=== PATIENT | female | born 1995 | race African-American/Black ===

== ENCOUNTER 2024-12-16 12:52 | Emergency (ER) | payer SELFPAY ==
--- NOTE | ~2024-12-16 | XR_ITS ---
HISTORY: RT flank pain, no injury COMPARISON: None TECHNIQUE: 3 views of the right ribs were performed along with a PA view of the chest FINDINGS: No acute displaced fracture is appreciated. Bone mineralization is age appropriate. Cardia mediastinal silhouette is unremarkable. The lungs are clear. IMPRESSION: No acute displaced rib fracture. The lungs are clear. Reviewed, dictated and finalized at location A.
--- NOTE | 2024-12-16 13:09 | ED.GENADULT ---
HPI - General Adult General Chief complaint: Unspecified Stated complaint: right side rib pain Time Seen by Provider: 12/16/24 13:24 Mode of arrival: ambulatory Limitations: no limitations History of Present Illness HPI narrative: 29-year-old female presents with concern for right anterior rib/right upper quadrant abdominal discomfort. Reports the pain feels like it is under her ribs. Reports has been there for 3 days. Reports she is comfortable when she sitting still in the pain is exacerbated when she moves, bends, twists. Reports coughing and deep breathing does not necessarily make the pain worse but sneezing does. She denies nausea, vomiting, diarrhea. Reports she last had a bowel movement 3 days ago but she typically only has a bowel movement twice a week. She does not feel constipated. She denies dysuria, frequency, urgency. Denies fever, body aches, chills, sweats. Denies recent cold symptoms, cough. Related Data Allergies Allergy/AdvReac Type Severity Reaction Status Date / Time Penicillins Allergy Unknown unknown Verified 12/16/24 13:10 Review of Systems Review of Systems: CONSTITUTIONAL: Denies malaise, chills, sweats, or fever. ENT: Denies rhinorrhea, congestion, sinus pain, otalgia or sore throat. CARDIOVASCULAR: Denies chest pain, palpitations, or edema. RESPIRATORY: Denies cough or dyspnea. GASTROINTESTINAL: Denies nausea, vomiting, diarrhea, constipation GENITOURINARY: Denies dysuria, urgency, frequency, or hematuria. SKIN: Denies bruising, redness, warmth, rash or itching. MUSCULOSKELETAL: Denies back pain, joint pain, or myalgia. Reports right anterior rib pain NEUROLOGIC: Denies numbness, weakness, or headache. PSYCHIATRIC: Denies anxiety or depression. All systems reviewed & are unremarkable except as noted in HPI and below PMFSH Comments At time of signature, agree with nursing past medical, surgical, social and family history. There is no relevant family history pertinent to the presenting complaint Exam Narrative: GENERAL: Well-appearing, well-nourished, and in no acute distress. HEAD: Normocephalic, atraumatic. EYES: PERRLA, sclera clear, and EOMI. No nystagmus. ENT: Nares clear. Mucous membranes moist. NECK: Supple. CHEST: No respiratory distress. Clear to auscultation. No bony deformities, no asymmetry. Speaks in full sentences. HEART: Regular rate and rhythm. No murmur heard. Normal peripheral pulses. ABDOMEN: Soft, nondistended, normal active bowel sounds, no palpable masses. Right upper quadrant tenderness EXTREMITIES: Normal range of motion. No edema. Normal strength and sensation. Right anterior lower rib tenderness SKIN: Warm, dry, no visible rash. NEURO: Alert and oriented x3. PSYCH: Normal mood and affect Course Course Emergency Course: Patient is aware of diagnosis, understands and agrees to treatment plan. Anticipatory guidance given. Patient agrees to follow-up as directed and is aware of reasons to seek care at the emergency department. Portions of this record may have been created with voice recognition software Level of Care: Express Care Visit Vital Signs Vital signs: Reviewed. Medical Decision Making MDM Narrative Medical decision making narrative: The patient was evaluated by myself in the [facility]. History is obtained from patient who is an independent historian and physical exam was performed.? Available medical records were reviewed at this time. ? Exam findings show no acute concerns or changes; patient is non-toxic appearing and is in no distress. Patient is appropriate for outpatient treatment and follow-up. ? I have evaluated and discussed social determinants of health with the patient that could potentially impact subsequent diagnosis and treatment plans. ? Differential diagnosis and treatment plan were discussed with the patient. Patient agrees with discussion and after shared medical decision making agrees with plan of care. All questions were answered to the patient's satisfaction. Critical Care Time Critical Care Time Critical Care Time: No Discharge Plan Discharge Clinical Impression: Rib pain Patient Disposition: Home Condition: Stable Instructions: General Patient Instructions Additional Instructions: 1) Please follow-up with your primary care doctor in the next 1-2 days. 2) If you have any worsening of symptoms or any other urgent concerns please go to the ER. 3) Please take medications as prescribed and continue taking your home medications as usual. 4) Please read and follow information included in discharge instructions. Patient Language: Irish Prescriptions: New cyclobenzaprine 10 mg tablet 10 mg PO TID PRN (Reason: muscle spasm) Qty: 20 0RF ibuprofen 800 mg tablet 800 mg PO Q6H PRN (Reason: pain) Qty: 30 0RF Follow-up/Referrals: PHYSICIAN,PARAKEET RAISER [Primary Care Provider] - Ubaldo Gil MD [Physician] - (RUQ abdominal tenderness) Stand Alone Forms: Work/School Release IP Time of Disposition: 14:13
[2024-12-16 13:15] VITALS: BP 132/85; PULSE 89; RESP 14; TEMP 36.6; O2SAT 100
[2024-12-16 13:22] LABS: EDUAAPPEAR Clear; EDUABILI Negative (Negative); EDUABLOOD Trace (Negative); EDUACOLOR1 Yellow; EDUAGLUCOSE Negative (Negative); EDUAKETONE Negative (Negative); EDUALEUKO Negative (Negative); EDUANITRATE Negative (Negative); EDUAPROTEIN Negative (Negative); EDUASPGRAVITY 1.025; EDUAUROBILI 0.2
== END 2024-12-16 14:18 | disposition home or self-care (01) ==
PROVIDERS: Emergency Provider Nurse Practitioner
DX: R07.81 Pleurodynia (principal)
CPT/HCPCS: 71101; 81003; 99203; G0463